=== PATIENT | male | born 1940 | race Caucasian/White ===

== ENCOUNTER 2021-05-09 05:35 | Outpatient (CLI) | payer MEDICARE, OTHER ==
[~2021-05-09] VITALS: Ht 170 cm; Wt 52.0 kg
== END 2021-05-09 11:38 | disposition home or self-care (01) ==
LOC: PREOP 05:35
PROVIDERS: ATTEND Surgery
DX: Z01.818 Encounter for other preprocedural examination (principal)

== ENCOUNTER 2021-05-14 13:40 | Day surgery (SDC) | payer MEDICARE, OTHER ==
[~2021-05-14] VITALS: Ht 170.2 cm; Wt 52.0 kg
[2021-05-14] VITALS (13 sets, daily range): BP systolic 86–128; BP diastolic 53–71
[2021-05-14] MEDS ORDERED: NS IV 500 ML 500 ML ONE (13:48)
[2021-05-14] MEDS ORDERED: fentaNYL INJ 100 MCG/2 ML AMP IVP ONE (14:15)
[2021-05-14] MEDS ORDERED: NS IV 500 ML 500 ML IV PRN ×2 (14:15→14:30)
[2021-05-14] MEDS ORDERED: MIDAZOLAM 5 MG/5 ML (VERSED) VIAL IV ONE (14:15)
[2021-05-14] MEDS ORDERED: LIDOCAINE JELLY 2% 6 ML SYRINGE MM PRN (14:15)
--- NOTE | 2021-05-14 14:25 | Conscious Sedation/ASA ---
Conscious Sedation Pre-Proced Time 14:00 ASA Score 2 For ASA 3 and 4: Consider anesthesia and medical clearance. Also, for patients with a history of failed moderate sedation consider anesthesia. Airway Lungs Heart ASA score ASA 1: a normal healthy patient ASA 2: a patient with a mild systemic disease (mid diabetes, controlled hypertension, obesity ASA 3: a patient with a severe systemic disease that limits activity (angina, COPD, prior Myocardial infarction) ASA 4: a patient with an incapacitating disease that is a constant threat to life (CHF, renal failure) ASA 5: a moribund patient not expected to survive 24 hrs. (ruptured aneurysm) ASA 6: a declared brain- patient whose organs are being harvested. For emergent operations, add the letter E after the classification Mallampati Classification Grade 2 Sedation Plan Analgesia, Amnesia, Plan communicated to team members, Discussed options with patient/fam, Discussed risks with patient/fam The patient is an appropriate candidate to undergo the planned procedure, sedation, and anesthesia. The patient immediately re-assessed prior to indication. DELORES HERRON MD May 14, 2021 14:25
--- NOTE | 2021-05-14 14:26 | Progress Note-Pre Operative ---
Pre-Operative Progress Note H&P Reviewed The H&P was reviewed, patient examined and no changes noted. Date Seen by Provider: May 14, 2021 Time Seen by Provider: 14:00 Date H&P Reviewed: May 14, 2021 Time H&P Reviewed: 14:00 Pre-Operative Diagnosis: weight loss, diarrhea DELORES HERRON MD May 14, 2021 14:26
--- NOTE | 2021-05-14 14:26 | Discharge Inst-Surgical ---
D/C Lap Instructions-GERMAINE Follow Up Appt in 2 weeks Activity as tolerated High Fiber Diet 25g or more per day Avoid Alcohol, Caffeine, Spicy Jessie and Acid foods. Drink 64 fluid oz or more of fluids per day. Symptoms to Report: Fever over 101 degree F, Nausea/Vomiting If any problems/questions: Contact your physician or go to Emergency Room DELORES HERRON MD May 14, 2021 14:26
--- NOTE | 2021-05-14 16:52 | Progress Note-Post Operative ---
Post-Operative Progess Note Surgeon (s)/Consulting Sales Executive (s) Surgeon DELORES HERRON MD Consulting Sales Executive: none Pre-Operative Diagnosis weight loss, diarrhea Post-Operative Diagnosis mild chronic stage 2 ext and int hemorrhoids. Procedure & Operative Findings Date of Procedure 05/14/21 Procedure Performed/Findings colonoscopy Anesthesia Type cs Estimated Blood Loss Estimated blood loss (mL): minimal Specimens/Packing Specimens Removed none DELORES HERRON MD May 14, 2021 16:52
--- NOTE | 2021-05-14 21:24 | OPERATIVE REPORT ---
DATE OF SERVICE: 05/14/2021 ATTENDING PRIMARY CARE PHYSICIAN: Dr. Peter Mckenzie. PREOPERATIVE DIAGNOSES: Weight loss, diarrhea. POSTOPERATIVE DIAGNOSES: Mild chronic stage II external and internal hemorrhoids. Remainder of the rectum and colon were normal. PROCEDURE: Colonoscopy. SURGEON: Delores Herron MD. ANESTHESIA: Conscious sedation. ESTIMATED BLOOD LOSS: Minimal. FINDINGS: Mild chronic stage II external and internal hemorrhoids. The remainder of the rectum and colon were normal. There were no polyps or any neoplasms identified. DISPOSITION: The patient tolerated the procedure well. INDICATIONS: The patient is a 80-year-old male referred over to us for colonoscopy. He has had intermittent episodes of diarrhea. He also reports that he has lost 10 pounds over the past 1 year and 20 pounds over the past 4 years. His last colonoscopy was approximately 20 years ago and believes this to be normal. He does not report any red blood per rectum nor any dark tarry stools as well as no family history of colon cancer. DESCRIPTION OF PROCEDURE: The patient was brought to the endoscopy suite, laid in left lateral decubitus position. After adequate IV pain and sedative medications and conscious sedation anesthesia, a digital rectal examination was performed. Mild chronic stage II external and internal hemorrhoids were identified, which were not actively edematous nor inflamed and no bleeding. Normal sphincter tone was felt and there were no palpable masses. Prostate gland was palpable and appeared normal. The endoscope was then intubated to the anus and rectum gently insufflated. The endoscope was then advanced through the valves of Marx of the rectum with no polyps or any neoplasms identified. The endoscope was then advanced through the sigmoid colon where no diverticulosis identified. The endoscope was then advanced through the remainder of the descending, transverse and ascending colon to the cecum. These segments were normal. There were no polyps or any neoplasms identified throughout the colon or rectum. Endoscope was then slowly withdrawn while taking a second look and suctioning of residual air with no additional findings. The patient tolerated the procedure well. We will recommend medical management with the incorporation of a high fiber diet with at least 30 grams of fiber daily to promote soft stools on a daily basis; however, prevent episodes of liquid diarrhea. It is hard to ascertain why he is having weight loss; however, could be age related or an upper gastrointestinal issue including gastritis or reflux esophagitis. There is also the possibility of a gallbladder etiology. We will schedule him for an outpatient ultrasound as well as a possible HIDA scan. He may also need an upper endoscopy as well. Job ID: [id number] DocumentID: [id number] Dictated Date: 05/14/2021 16:43:52 [employer] Justice Department Chair Date: 05/14/2021 21:24:10 Dictated By: DELORES HERRON MD
== END 2021-05-14 17:34 | disposition home or self-care (01) ==
LOC: ENDO 13:40
PROVIDERS: ATTEND Surgery
DX: K64.1 Second degree hemorrhoids (principal); R19.7 Diarrhea, unspecified; R63.4 Abnormal weight loss; Z90.89 Acquired absence of other organs; Z68.1 Body mass index [BMI] 19.9 or less, adult

== ENCOUNTER → 2021-05-23 | Outpatient (CLI) | payer MEDICARE, OTHER ==
--- NOTE | 2021-05-23 11:05 | Diagnostic Imaging Report ---
PROCEDURE: US Gallbladder. TECHNIQUE: Multiple real-time grayscale images were obtained over the right upper quadrant in various projections. INDICATION: Diarrhea and weight loss. FINDINGS: Liver measures 12.5 cm in size. No discrete liver mass is identified. The gallbladder is difficult to visualize and appears to be contracted. There is some shadowing coming from the region of the gallbladder fossa, suggestive of gallstones. The extrahepatic bile duct is prominent at 8 mm. Pancreas is unremarkable. Aorta is nonaneurysmal. IVC is patent. Right kidney is without calculi or hydronephrosis. There is no ascites. IMPRESSION: Poorly visualized gallbladder. There are findings suggestive of cholelithiasis. In addition, extrahepatic bile duct is prominent at 8 mm. No definite common duct stone is identified, although this could not be entirely excluded. The remainder of the study is unremarkable. Dictated by: Dictated on workstation # [id number]
== END ==
LOC: RAD 08:30
PROVIDERS: ATTEND Surgery
DX: R63.4 Abnormal weight loss (principal); R19.7 Diarrhea, unspecified
CPT/HCPCS: 76705